=== PATIENT | female | born 1955 | race Caucasian/White ===

== ENCOUNTER 2019-02-09 12:00 | Emergency (ER) | payer OTHER ==
[~2019-02-09] VITALS: Ht 162.6 cm; Wt 58.1 kg
--- OUTSIDE RECORDS SUMMARY | 2019-02-09 12:08 | XMS REPORT ---
[facility] Address Unknown Phone Unavailable Care Team Providers Care Hoof Trimmer Name Role Phone Unavailable Unavailable Payers Payer Name Policy Type Policy Number Effective Date Expiration Date Problems This patient has no known problems. Allergies, Adverse Reactions, Alerts Allergy Name Allergy Type Status Severity Reaction(s) Onset Date Inactive Date Treating Clinician Comments levofloxacin DA Active U 2018-04-26 00:00:00 levofloxacin DA Active U 2009-08-20 00:00:00 Medications This patient has no known medications.
[2019-02-09] MEDS ORDERED: ACETAMINOPHEN 325 MG TAB PO ONE (12:45)
[2019-02-09] MEDS ORDERED: SODIUM CHLORIDE 0.9% 1000ML 1,000 ML IV SCH (12:45)
[2019-02-09] MEDS ORDERED: ALBUTEROL/IPRATROPIUM 3 ML NEB NEB ONE (12:45)
[2019-02-09] MEDS ORDERED: METHYLPREDNISOLONE SOD SUCC 125 MG/2ML VIAL IV ONE (12:45)
--- NOTE | 2019-02-09 13:16 | Diagnostic Imaging Report ---
EXAMINATION: CXR 2 VIEW - HOPD INDICATION: Hypoxia, cough, fever ^[id number] ^[id number] COMPARISON: None FINDINGS: PA and lateral views TUBES and LINES: None. LUNGS: Mild hyperinflation. There is no evidence of pneumonia or pulmonary edema. PLEURA: No pleural effusion or pneumothorax. HEART AND MEDIASTINUM: The cardiomediastinal silhouette is unremarkable.. BONES AND SOFT TISSUES: The bones are diffusely demineralized. Pectus excavatum deformity. No focal osseous lesions. Soft tissues are unremarkable. UPPER ABDOMEN: Unremarkable. IMPRESSION: Mild hyperinflation. No pulmonary infiltrates. Signed by: Dr. Gayla Faustin MD on 02/09/2019 1:13 PM
[2019-02-09] MEDS ORDERED: ACETAMINOPHEN 325 MG TAB ONE (13:47)
[2019-02-09] MEDS ORDERED: ALBUTEROL/IPRATROPIUM 3 ML NEB ONE ×2 (13:47→14:46)
[2019-02-09] MEDS ORDERED: SODIUM CHLORIDE 0.9% 1000ML 1,000 ML ONE (13:47)
[2019-02-09] MEDS ORDERED: METHYLPREDNISOLONE SOD SUCC 125 MG/2ML VIAL ONE (13:47)
[2019-02-09] MEDS ORDERED: PREDNISONE20 MG PO (13:58)
[2019-02-09] MEDS ORDERED: DOXYCYCLINE HY100 MG PO (13:58)
[2019-02-09] MEDS ORDERED: VENTOLIN HFA18 GM PO (14:03)
[2019-02-09 15:46] VITALS: BP 120/76
== END 2019-02-09 15:29 | disposition home or self-care (01) ==
LOC: FSED 12:00
DX: R50.9 Fever, unspecified (principal); R06.2 Wheezing; J44.1 Chronic obstructive pulmonary disease with (acute) exacerbation; J20.9 Acute bronchitis, unspecified; F17.210 Nicotine dependence, cigarettes, uncomplicated
CPT/HCPCS: 71046; 80053; 81003; 83605; 85025; 87400; 96374; 99284; J2930; J7030

== ENCOUNTER 2019-07-10 14:00 | Emergency (ER) | payer OTHER ==
[~2019-07-10] VITALS: Ht 162.6 cm; Wt 61.0 kg
[~2019-07-10 14:00] MED LIST: DOXYCYCLINE HY100 MG PO; PREDNISONE20 MG PO; VENTOLIN HFA18 GM PO
[2019-07-10] MEDS ORDERED: KETOROLAC TROMETHAMINE 30 MG/ML VIAL ONE (14:24)
[2019-07-10] MEDS ORDERED: TYLENOL WITH C1 EACH PO (14:25)
[2019-07-10] MEDS ORDERED: NAPROSYN500 MG PO (14:25)
[2019-07-10] MEDS ORDERED: KETOROLAC TROMETHAMINE 60 MG/2 ML VIAL IM ONE (14:30)
[2019-07-10] MEDS ORDERED: LUMIGAN2.5 M1 OP (14:51)
[2019-07-10] MEDS ORDERED: ATIVAN1 MG (14:51)
[2019-07-10] MEDS ORDERED: VITAMIN E400 UNI1 (14:51)
[2019-07-10] MEDS ORDERED: BIOTIN2500 MCG (14:51)
[2019-07-10] MEDS ORDERED: LEXAPRO20 MG PO (14:51)
[2019-07-10] MEDS ORDERED: [UNRECOGNIZED DRUG - OTHER] (14:51)
[2019-07-10] MEDS ORDERED: TIROSINT25 MCG (14:51)
[2019-07-10] MEDS ORDERED: FISH OIL 1,2001 EACH (14:56)
[2019-07-10] MEDS ORDERED: ONE-A-DAY ESSE1 EACH (14:56)
[2019-07-10] MEDS ORDERED: ABILIFY5 MG PO (14:56)
[2019-07-10] MEDS ORDERED: SUPER B COMPLE1 EACH (14:57)
[2019-07-10] MEDS ORDERED: LUNESTA3 MG (14:57)
[2019-07-10] MEDS ORDERED: COMPRO25 MG (14:57)
[2019-07-10] MEDS ORDERED: FOLIC ACID0.8 MG (14:57)
[2019-07-10] MEDS ORDERED: LIVALO1 MG PO (14:57)
[2019-07-10] MEDS ORDERED: ATENOLOL50 MG (14:57)
--- NOTE | 2019-07-10 15:03 | Diagnostic Imaging Report ---
X-ray right knee 3 views Comparison: None History: Pain and swelling Findings: There is no acute fracture or subluxation. There is periarticular soft tissue swelling. There is knee effusion. Osteopenia is incidentally noted. Impression: Right knee swelling with a right knee joint effusion. Signed by: Gigi Holman MD on 07/10/2019 2:59 PM
[2019-07-10 15:23] VITALS: BP 155/77
== END 2019-07-10 15:20 | disposition home or self-care (01) ==
LOC: FSED 14:00
DX: M25.561 Pain in right knee (principal); M25.461 Effusion, right knee; M17.11 Unilateral primary osteoarthritis, right knee
CPT/HCPCS: 73562; 96372; 99283; J1885